=== PATIENT | female | born 1980 | race Hispanic/Latino ===

== ENCOUNTER 2017-01-29 06:55 | Day surgery (SDC) | payer OTHER ==
[2017-01-20 09:13] VITALS: BMI 34.3
[2017-01-29] MEDS ORDERED: Lidocaine 1% Inj (20ml) ONE (07:26)
[2017-01-29] MEDS ORDERED: ceFAZolin IV 2 gm in Dextrose 1 GM/50 ML BAG IVPB ONE (07:26)
[2017-01-29] MEDS ORDERED: ceFAZolin IV 1 gm in Dextrose 0 GM/0 ML BAG IVPB ONE (07:26)
[2017-01-29] MEDS ORDERED: Bupivacaine/Epi 0.25%-1:200,000 10 ml PF inj IJ ONE (07:26)
[2017-01-29] MEDS ORDERED: Midazolam 2 MG/2 ML VIAL ONE (07:45)
[2017-01-29] MEDS ORDERED: Propofol 10 mg/ml Inj (20 ML) ONE (07:46)
[2017-01-29] MEDS ORDERED: Lactated Ringer's 1,000 ML IV ONE (08:10)
--- NOTE | 2017-01-29 09:40 | PCM.SURG1 ---
Surgeon's Initial Post Op Note - Surgeon's Notes Surgeon: Dr. Bella Insights Strategist: Dr. Osman Type of Anesthesia: General LMA, Local Pre-Operative Diagnosis: left shoulder lipoma Operative Findings: lipoma Post-Operative Diagnosis: left shoulder lipoma Operation Performed: excision of left shoulder lipoma Specimen/Specimens Removed: lipoma Estimated Blood Loss: EBL {In ML}: 10 Blood Products Given: N/A Drains Used: No Drains Post-Op Condition: Good Date of Surgery/Procedure: 01/29/17 Time of Surgery/Procedure: 09:40
[2017-01-29] MEDS ORDERED: Oxycodone/Acetaminophen 5/325 mg Tab PO PRN (10:09)
[2017-01-29] MEDS ORDERED: HYDROmorphone 0.5 mg/0.5 ml ISec IVP PRN (10:10)
[2017-01-29 10:24] VITALS: O2SAT 100
[2017-01-29 11:18] VITALS: BP 125/77; PULSE 80; RESP 18; TEMP 96.1
--- NOTE | 2017-01-29 11:45 | OP ---
PROCEDURE DATE: 01/29/2017 PREOPERATIVE DIAGNOSIS: Lipoma of the left shoulder, approximately 4 x 4 cm size. POSTOPERATIVE DIAGNOSIS: Intramuscular lipoma of the left shoulder, 5 x 4 cm size. PROCEDURE DONE: 1. Excision of lipoma of the left shoulder, 5 x 4 cm size. 2. Layered closure of the wound, 5 x 4 cm size. SURGEON: Adolph Bella MD CITY COLLECTOR: Olive Osman, PGY-1 resident ANESTHESIA: General endotracheal tube anesthesia. ESTIMATED BLOOD LOSS: Around 10 mL. DRAINS: None. PATHOLOGY: The large lipoma of the left shoulder was sent for the pathology. COMPLICATIONS: None. INTRAOPERATIVE FINDINGS: The patient had lipoma of the left shoulder with intramuscular extension wi th irregular shape and a finger-like projection. INTRAOPERATIVE STEPS: This 36-year-old female was diagnosed with left shoulder lipoma and the patien t was consented for the excision of the lipoma of the left shoulder and brought to the OR, placed in the right lateral position after induction of the anesthesia. The left shoulder was prepped and drap ed in a usual sterile fashion and the transverse 4 cm incision was made. After incising skin and sub cutaneous tissue, upper and lower flap was created. Lateral and medial dissection was done. The lip stefano was identified. Lipoma appeared to be extending into the underlying fascia and the muscles and w ith sharp and blunt dissection, the lipoma with the finger-like projection was excised and it was sen t off the table for the pathology. The wound was irrigated and after proper hemostasis, the wound wa s closed in multiple layers -- the upper and lower flap to the underlying fascia, the subQ with a 2-0 Vicryl, another layer of subQ with a 3-0 Vicryl, skin with a 4-0 Monocryl and another layer of the s kin with 4-0 nylon interrupted suture and dry sterile dressing was applied. The patient tolerated pr ocedure well. Count of instruments and gauze was correct. There was no apparent complication. Adolph Bella MD cc: [id number] TT: 01/29/2017 11:44:40 sn
== END 2017-01-29 11:41 | disposition home or self-care (01) ==
LOC: C.SDS 06:55
PROVIDERS: ATTEND Surgery Surgical Critical Care
DX: D17.22 Benign lipomatous neoplasm of skin and subcutaneous tissue of left arm (principal)
CPT/HCPCS: 11406; 88304; J0690; J1170; J1885; J2001; J2250; J2405; J2704; J3010; J7120

== ENCOUNTER 2017-02-09 14:21 | Emergency (ER) | payer OTHER ==
[2017-02-09 14:22] VITALS: BMI 34.3
[2017-02-09 14:36] VITALS: O2SAT 100
[2017-02-09 15:40] LABS: BASO # 0.1 K/uL (0.0-0.2); BASO % 0.7 % (0.0-2.0); EOS # 0.3 K/uL (0.0-0.7); EOS % 3.3 % (0.0-4.0); LYMPH # 1.5 K/uL (1.0-4.3); LYMPH % 19.6 % (20.0-40.0); MEAN CELL VOLUME 87.7 fL (81.0-99.0); MEAN CORPUSCULAR HGB CONC 33.1 g/dL (33.0-37.0); MEAN PLATELET VOLUME 9.2 fL (7.2-11.7); MONO # 0.7 K/uL (0.0-0.8); MONO % 8.4 % (0.0-10.0); RED CELL DISTRIBUTION WIDTH 12.6 % (11.5-14.5); WHITE BLOOD COUNT 7.8 K/uL (4.8-10.8)
--- NOTE | 2017-02-09 15:44 | C.PDOC ---
History Of Present Illness 36-year-old female, presents to the emergency department with complaints of palpitations. Patient states she used ecstasy last night, and has been restless , anxious with palpitations since. Patient reports she was unable to sleep. States she has used ecstasy in the past, but has not had these symptoms before. Denies nausea/vomiting, chest pain or dizziness. Time Seen by Provider: 02/09/17 15:14 Chief Complaint (Nursing): Palpitations History Per: Patient History/Exam Limitations: no limitations Onset/Duration Of Symptoms: Hrs Current Symptoms Are (Timing): Still Present Severity: Moderate Past Medical History Reviewed: Historical Data, Nursing Documentation, Vital Signs Vital Signs: Last Vital Signs Temp 98.4 F 02/09/17 16:31 Pulse 80 02/09/17 16:31 Resp 18 02/09/17 16:31 BP 136/86 02/09/17 16:31 Pulse Ox 100 02/09/17 16:31 - Medical History PMH: Depression, HTN Denies: Chronic Kidney Disease Family History: States: No Known Family Hx - Social History Hx Alcohol Use: Yes Hx Substance Use: Yes - Immunization History Hx Tetanus Toxoid Vaccination: No Hx Influenza Vaccination: Yes Hx Pneumococcal Vaccination: No Review Of Systems Except As Marked, All Systems Reviewed And Found Negative. Constitutional: Negative for: Fever, Chills Cardiovascular: Positive for: Palpitations. Negative for: Chest Pain Respiratory: Negative for: Shortness of Breath Gastrointestinal: Negative for: Nausea, Vomiting Neurological: Negative for: Weakness, Numbness, Headache, Dizziness Physical Exam - Physical Exam Appears: Non-toxic, No Acute Distress Skin: Warm, Dry, No Rash Head: Atraumatic, Normacephalic Eye(s): bilateral: Normal Inspection, PERRL, EOMI Nose: Normal Oral Mucosa: Moist Lips: Normal Appearing Neck: Normal ROM Cardiovascular: Rhythm Regular, No Murmur Respiratory: Normal Breath Sounds, No Accessory Muscle Use Gastrointestinal/Abdominal: Soft, No Tenderness Extremity: Normal ROM Neurological/Psych: Oriented x3 ED Course And Treatment - Laboratory Results Result Diagrams: 02/09/17 15:34 02/09/17 15:34 Lab Interpretation: Normal ECG: Interpreted By Me ECG Rhythm: Sinus Rhythm (with mild LVH) ECG Interpretation: Normal O2 Sat by Pulse Oximetry: 100 Pulse Ox Interpretation: Normal Reevaluation Time: 17:17 Reassessment Condition: Improved Disposition Counseled Patient/Family Regarding: Studies Performed, Diagnosis, Need For Followup - Disposition Disposition: HOME/ ROUTINE Disposition Time: 17:22 Condition: IMPROVED Instructions: Palpitations (ED) - Clinical Impression Clinical Impression: Palpitations, Substance abuse - Scribe Statement The provider has reviewed the documentation as recorded by the Melibtravis Flores All medical record entries made by the Melibtravis were at my direction and personally dictated by me. I have reviewed the chart and agree that the record accurately reflects my personal performance of the history, physical exam, medical decision making, and the department course for this patient. I have also personally directed, reviewed, and agree with the discharge instructions and disposition.
[2017-02-09 15:47] LABS: RBC URINE 1 /hpf (0-3); URINE BILIRUBIN NEGATIVE (NEGATIVE); URINE BLOOD NEGATIVE (NEGATIVE); URINE COLOR Yellow (YELLOW); URINE GLUCOSE (UA) NORMAL (Normal); URINE KETONE NEGATIVE (NEGATIVE); URINE LEUKOCYTE ESTERASE NEG Leu/uL (Negative); URINE PROTEIN NEGATIVE (NEGATIVE); URINE UROBILINOGEN NORMAL mg/dL (0.2-1.0); WBC URINE < 1 /hpf (0-5)
[2017-02-09 15:48] LABS: CHLORIDE 103 mmol/L (98-107); POTASSIUM 3.7 mmol/L (3.6-5.2); SODIUM 138 mmol/L (132-148)
[2017-02-09 15:50] LABS: ALB/GLOB RATIO 1.4 (1.0-2.1); ALKALINE PHOSPHATASE 63 U/L (38-126); ALT/SGPT 29 U/L (9-52); AST/SGOT 26 U/L (14-36); BILIRUBIN,TOTAL 0.7 mg/dL (0.2-1.3); BLOOD UREA NITROGEN 9 mg/dL (7-17); CARBON DIOXIDE 24 mmol/L (22-30); GFR AFRICAN-AMERICAN > 60; TOTAL PROTEIN 7.2 g/dL (6.3-8.3)
[2017-02-09 15:51] LABS: ALCOHOL SERUM < 10 mg/dl (0-10); CALCIUM 8.8 mg/dl (8.6-10.4); GLUCOSE,RANDOM 93 mg/dL (65-105); MAGNESIUM 2.2 mg/dL (1.6-2.3)
[2017-02-09 16:31] VITALS: BP 136/86; PULSE 80; RESP 18; TEMP 98.4
--- NOTE | 2017-02-10 13:09 | CARD ---
APPROVED REPORT EKG Measurement Heart [id number] <Conclusion> Normal sinus rhythm Minimal voltage criteria for LVH, may be normal variant Borderline ECG
== END 2017-02-09 17:30 | disposition home or self-care (01) ==
LOC: C.ER 14:21
DX: R00.2 Palpitations (principal); F19.10 Other psychoactive substance abuse, uncomplicated